=== PATIENT | female | born 1995 | race Caucasian/White ===

== ENCOUNTER 2018-01-20 16:24 | Emergency (ER) | payer OTHER, SELFPAY ==
[2018-01-20 17:51] LABS: Pregnancy Test - Urine (BHCG) Negative (Negative); Pregu Control Background? CLEAR/WHITE (CLR/WHITE); Pregu Control Bar Appear? YES (CONTROL BAR); Specific Gravity 1.022 (1.002-1.036)
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
== END 2018-01-20 18:25 | disposition home or self-care (01) ==
LOC: ERS 16:24
DX: S70.12XA Contusion of left thigh, initial encounter (principal); F90.9 Attention-deficit hyperactivity disorder, unspecified type; F98.8 Other specified behavioral and emotional disorders with onset usually occurring in childhood and adolescence; Z87.891 Personal history of nicotine dependence; Z79.899 Other long term (current) drug therapy; V43.52XA Car driver injured in collision with other type car in traffic accident, initial encounter
CPT/HCPCS: 81025; 96360

== ENCOUNTER 2020-08-14 10:43 | Emergency (ER) | payer BC, OTHER, SELFPAY ==
[2020-08-14 18:58] LABS: SARS-CoV-2 MS2 Positive; SARS-CoV-2 N Gene Negative; SARS-CoV-2 S Gene Negative; SARS-CoV-2 by NAA Not Detected (NotDetected); SARS-CoV-2 orf1ab Negative
== END 2020-08-14 11:29 | disposition home or self-care (01) ==
LOC: ERS 10:43
DX: R05 Cough (principal); R68.83 Chills (without fever); Z87.891 Personal history of nicotine dependence; Z20.822 Contact with and (suspected) exposure to COVID-19
CPT/HCPCS: 87635; 99283; U0003

== ENCOUNTER 2022-10-05 11:03 | Emergency (ER) | payer BC ==
[2022-10-05] MEDS ORDERED: Ketorolac Tromethamine 30 MG/ML VIAL ONE (12:06)
[2022-10-05] MEDS ORDERED: Acetaminophen 500 MG TAB ONE (12:06)
== END 2022-10-05 13:10 | disposition home or self-care (01) ==
LOC: ERS 11:03
DX: S91.311A Laceration without foreign body, right foot, initial encounter (principal); F17.290 Nicotine dependence, other tobacco product, uncomplicated; W51.XXXA Accidental striking against or bumped into by another person, initial encounter
CPT/HCPCS: 96372; J1885